=== PATIENT | male | born 1935 | race Caucasian/White ===

== ENCOUNTER 2025-06-09 08:11 | Emergency (ER) | payer MEDICARE, SELFPAY ==
--- NOTE | 2025-06-09 08:14 | ED_ITS ---
HPI - Eye Problem General Stated complaint: Fall, Left Eye Injury Source: patient and RN notes reviewed Mode of arrival: ambulatory Limitations: no limitations Review of Systems Review of Systems: CONSTITUTIONAL: Denies malaise, chills, sweats, or fever. EYES: Denies visual changes. Reports redness, irritation, discharge. ENT: Denies rhinorrhea, congestion, sinus pain, otalgia or sore throat. SKIN: Denies rash or itching. NEUROLOGIC: Denies numbness, weakness, or headache. PSYCHIATRIC: Denies anxiety or depression. All systems reviewed & are unremarkable except as noted in HPI and below PMFSH Comments At time of signature, agree with nursing past medical, surgical, social and family history. There is no relevant family history pertinent to the presenting complaint Exam Narrative: GENERAL: Well-appearing, well-nourished, and in no acute distress. HEAD: Normocephalic, atraumatic. EYES: PERRLA, sclera clear, and EOMI. No nystagmus. Bilateral conjunctivae injected. Upper and lower eyelid unremarkable, no periorbital edema noted ENT: Nares clear, turbinates pink, no rhinorrhea or epistaxis. Mucous membranes moist. TM pearly little with sharp light reflex bilaterally; no tragal tenderness. NECK: Supple. CHEST: No respiratory distress. Speaks in full sentences. HEART: Regular rate and rhythm. SKIN: Warm, dry, no visible rash. NEURO: Alert and oriented x3. PSYCH: Normal mood and affect Course Course Emergency Course: Patient is aware of diagnosis, understands and agrees to treatment plan. Ant icipatory guidance given. Patient agrees to follow-up as directed and is aware of reasons to seek care at the emergency department. Portions of this record may have been created with voice recognition software Level of Care: Express Care Visit Vital Signs Vital signs: Reviewed. MDM - Eye Problem MDM Narrative Medical decision making narrative: Consideration of the following conditions may be warranted for the presenting problem, they are not final diagnoses: Bacterial conjunctivitis, allergic conjunctivitis, viral conjunctivitis, foreign body, blepharitis, chalazion, hordeolum, corneal abrasion, preseptal cellulitis, orbital cellulitis. No evidence of proptosis, ophthalmoplegia, vision loss, pain with eye movement. Exam findings show no acute concerns or changes; patient is non-toxic appearing and is in no distress. Patient is appropriate for outpatient treatment and follow-up. Critical Care Time Critical Care Time Critical Care Time: No Discharge Plan Discharge Patient Language: [place] Follow-up/Referrals: Dewey,MD Eddie [Primary Care Provider] -
[2025-06-09 08:21] VITALS: BP 138/70; PULSE 88; RESP 16; TEMP 36.6; O2SAT 97
--- OUTSIDE RECORDS SUMMARY | 2025-06-09 08:21 | XMS_ITS ---
Author Organization [facility] Address [address] [place] [address] Care Team Providers Care Boilermaker Loftsman Name Role Phone Ky Wilson RN, Daniel Patrick MD Primary Care Provider [phone] Active Problems Problem Noted Date Diagnosed Date Hypotension 03/09/2025 Assessment & Plan (03/09/2025 7:47 AM CDT): Encounter for hepatitis C sc reening test for low risk patient 03/09/2025 Assessment & Plan (03/09/2025 7:47 AM CDT): Orders: Hepatitis C antibody Blood; Future Screening for diabetes mellitus 03/09/2025 Assessment & Plan (03/09/2025 7:47 AM CDT): Orders: Comprehensive metabolic panel; Future Screening, anemia, deficiency, iron 03/09/2025 Assessment & Plan (03/09/2025 7:47 AM CDT): Orders: CBC with auto differential; Future Screening for thyroid disorder 03/09/2025 Assessment & Plan (03/09/2025 7:47 AM CDT): Orders: TSH; Future Screening PSA (prostate specific antigen) 2024 Assessment & Plan (03/09/2025 7:47 AM CDT): Orders: PSA screen; Future Need for hepatitis B screening test 03/09/2025 Assessment & Plan (03/09/2025 7:47 AM CDT): Orders: Hepatitis B Surface Antigen Blood; Future Hepatitis B surface antibody (immune status) Blood; Future Hepatitis B core antibody, total Blood; Future 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, psychotic disturbance, mood disturbance, or anxiety 07/08/2024 Assessment & Plan (07/09/2024 12:43 PM CDT): Stable, continues to have progression; has some difficulty with taking medications on time; poor short-term memory, though continues to maintain long-term memory Patient currently driving short distances, but would encourage limiting driving in case patient were to get lost or redirected Patient would benefit from living in assisted living as is having difficulty continuing to care for patient, especially as she is in rehab Patient previously on medications, but did not tolerate; will continue to monitor Unsteady gait when walking 12/04/2022 Assessment & Plan (12/04/2022 2:15 PM MANAGER CULTURE): -not at goal -patient reports unsteady gait when walking. -offered PT, but patient declines at this time -recommended making slow position changes BMI 26.0-26.9,adult 12/04/2022 Assessment & Plan (12/04/2022 2:14 PM MANAGER CULTURE): HPI: Condition is stable goal BMI <30 A&P: Healthy, high-protein, lower carbohydrate, lower fat lifestyle Dysphagia 11/21/2022 Assessment & Plan (07/04/2023 3:00 PM CDT): Continues to have some episodes of dysphagia; choking in difficulty swallowing Encouraged continued education modifications per speech therapy Assessment & Plan (11/21/2022 12:03 PM MANAGER CULTURE): Modified barium swallow Consider speech therapy referral based on findings Syncope 06/29/2022 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 Lomeli, following. Mixed hyperlipidemia 05/16/2022 Assessment & Plan (03/09/2025 7:47 AM CDT): Orders: Lipid panel; Future Assessment & Plan (07/09/2024 12:42 PM CDT): Stable, well controlled, lipids and optimal range; continue to encourage low-fat high-fiber diet Assessment & Plan (01/03/2024 4:40 PM MANAGER CULTURE): Stable, well controlled; lipids and optimal range Will continue to monitor; encourage low-fat high-fiber diet Acquired deafness of right ear 06/27/2021 Anticoagulation goal of INR 2 to 3 05/16/2020 Assessment & Plan (06/12/2022 2:59 PM CDT): Last at goal - check today , can space out to every 2 weeks if remains at goal Assessment & Plan (05/16/2022 10:29 AM CDT): Continue current dose of warfarin, restart INR monitoring schedule INR has been within goal and slightly on high end but within goal and will continue current Schedule - can be checked every 2 to 4 weeks at this time Bilateral carotid artery stenosis 11/12/2019 History of Agarwal's esophagus 02/17/2019 Overview (02/17/2019): Added automatically from request for surgery [id number] History of colon polyps 02/17/2019 Overview (02/17/2019): Added automatically from request for surgery [id number] 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 Centrilobular emphysema 12/13/2017 Assessment & Plan (03/09/2025 7:47 AM CDT): Assessment & Plan (07/09/2024 12:43 PM CDT): Stable, well controlled, breathing well; gets dyspneic with walking or climbing stairs; no current medications Assessment & Plan (01/03/2024 4:40 PM MANAGER CULTURE): Stable, generally well controlled; patient reports some dyspnea; mostly associated with talking for long duration due to need to force out air through vocal cords Will continue to monitor, no need for inhaled medications at this time Assessment & Plan (07/04/2023 3:01 PM CDT): Continues to have issues with breathing, does not use any current inhalers Will continue to monitor, would recommend restarting inhalers as needed Assessment & Plan (06/12/2022 2:53 PM CDT): Continue current regimen - Not well controlled but dont think he is actually using his inhalers. States that the issue is only due to his phglem Assessment & Plan (05/16/2022 10:48 AM CDT): Continue current regimen - ellipta, albuterol. Well controlled Assessment & Plan (10/06/2019 8:55 AM MANAGER CULTURE): Replace home on oral with formulary Symbicort while inpatient. Continue albuterol p.r.n. Chronic GERD 08/20/2017 Assessment & Plan (03/09/2025 7:47 AM CDT): Assessment & Plan (01/03/2024 4:40 PM MANAGER CULTURE): Well controlled, no dysphagia difficulty with eating; no current antacids; continue to monitor Assessment & Plan (07/04/2023 3:00 PM CDT): Continues to have some symptoms, patient is not on any current medications Will continue to monitor, adjust medications as needed Assessment & Plan (10/06/2019 8:54 AM MANAGER CULTURE): Continue PPI therapy. Mixed conductive and sensori neural hearing loss of both ears 07/18/2017 Assessment & Plan (05/16/2022 10:47 AM CDT): Pt is hard of hearing, should follow up with audiology as warranted Lumbar stenosis 06/27/2017 Assessment & Plan (06/27/2017 4:47 PM CDT): consulted today in office to determine any other treatment options for chronic lumbago. 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 Does complain of some phglem in the throat Assessment & Plan (10/06/2019 8:55 AM MANAGER CULTURE): Historical only, status post resection. Dysphonia 09/28/2015 Chronic a-fib 04/17/2014 Overview (03/08/2017): ATRIAL FIBRILLATION Assessment & Plan (03/09/2025 7:47 AM CDT): Assessment & Plan (07/09/2024 12:43 PM CDT): Stable, well control, rate controlled; patient not on any current rate- controlling medication Currently on Eliquis 5 mg b.I.d.; however some difficulty in taking twice daily medication, may benefit from switching to once daily DOAC Assessment & Plan (01/03/2024 4:40 PM MANAGER CULTURE): Stable, rate controlled; irregular rhythm No major side effects associated with Eliquis No major palpitations Continue Eliquis 5 mg b.i.d. Assessment & Plan (07/04/2023 3:01 PM CDT): Stable, rate controlled; continue Eliquis 5 mg b.i.d. Assessment & Plan (06/12/2022 2:43 PM CDT): Continue home warfarin. Rate is self controlled without beta-eva or CB therapy. Continue telemetry monitoring. Assessment & Plan (05/16/2022 10:47 AM CDT): Continue home warfarin. Rate is self controlled without beta-eva or CB therapy. Continue telemetry monitoring. Assessment & Plan (10/06/2019 8:53 AM MANAGER CULTURE): Continue home warfarin. Rate is self controlled without beta-eva or CB therapy. Continue telemetry monitoring. Assessment & Plan (07/04/2017 1:26 PM CDT): Stable in office today. Cont coumadin therapy for anticoagulation and metoprolol for rate control Assessment & Plan (06/27/2017 4:45 PM CDT): Rate is controlled. Continue with his Coumadin at 2 mg dosing as a that does not seem to be the problem causing his shortness of breath considering EKG in office today. Considering risk factors, we also checked an O2 sat office today which was 99% and lungs sounded good so there is no concern of PE development at this time Current Treatment and Therapy Plans No current plan information found. Past Treatment and Therapy Plans No past plan information found. Lifetime Dose Tracking * Chemical Lifetime Dose Automatic Entry Manual Entr y Fluoro Time 1.58 minutes 1.58 minutes 0 minutes Air kerma at the reference point (Ka,r) 6.3 mGy 6 .3 mGy 0 mGy Resolved Problems Problem Noted Date Diagnosed Date Resolved Date Cardiac rhythm disorder or d isturbance or change 08/15/2020 05/26/2021 Bilateral carotid artery stenosis 05/17/2020 05/17/2020 Syncope 10/06/2019 11/01/2020 Assessment & Plan (10/06/2019 8:54 AM MANAGER CULTURE): Most likely 2/2 intermittent hypotension given 1 year history of orthostatic symptoms. RVR and bradycardia less likely with lack of palpitations, but can't be ruled out with history of Afib. Unfortunately neither patient nor his thought to press recordable loop recorder after his syncopal event occurred so there are no recordings available to interrogate. Had normal stress test 09/15/19 and TTE with EF 65-70%. Cardiology consulted, may benefit from midodrine on discharge. SOB (shortness of breath) 06/27/2017 Assessment & Plan (07/04/2017 1:41 PM CDT): Discussed use of ProAir p.r.n. for shortness of breath and possibly ordering of pulmonary function tests to see if there is possibly some asthma there. Patient denied wanting test at this time he will be she is ProAir as needed We discussed switching over ipratropium he is afraid of tachycardia which might present with ProAir, but again he wants to wait and try the ProAir 1st. He declined wanting to get the 2D echocardiogram that he believes shortness of breath is not cardiac related concerns cardiac history, I discussed that it would still be advised by me. He was advised to let us know if he would like to move forward with scheduling the test if desired Assessment & Plan (06/27/2017 4:47 PM CDT): 2D echocardiogram ordered today in office along with a chest x-ray to look for other etiologies causing his shortness of breath. EKG appeared normal for patient in office today. I prescribed ProAir because of the wheezing for him to use as needed. I advised him today keep a tab on when he is using it if it is effective, and next visit we can always do spirometry study as well He was advised to follow up in our office in a week, and certainly if symptoms worsen in between here and then to go to ER or make an appointment sooner depending on urgency Chronic fatigue 06/27/2017 05/16/2020 Assessment & Plan (06/27/2017 4:46 PM CDT): I believe the fatigue to be secondary to the gabapentin. I advised patient we can consult another pain management doctor as they are requesting to see a different 1 he is currently seeing at [facility]. Dr. bryan with consult to for lumbar stenosis. Lyrica would be another option, if he is unable to get with Dr. Hill we can consider switching over to Lyrica from gabapentin if this is contributing to his fatigue. Certainly we can also check into a any anemia or thyroid deficiencies by CBC and a TSH follow-up as well Pain in shoulder 09/27/2016 01/27/2019 Spinal stenosis 03/23/2016 01/27/2019 Chronic pain 03/23/2016 05/16/2020 Malignant neoplasm of larynx 08/30/2014 09/29/2018 Lesion of vocal cord 08/11/2014 019 Osteoarthritis of knee 05/12/201205/16
--- OUTSIDE RECORDS SUMMARY | 2025-06-09 08:21 | XMS_ITS | Encounter Summary ---
Author Organization [facility] Address [address] [place] [address] Phone Care Team Providers Care Buy Boat Operator Name Role Phone Ky Wilson RN Unavailable Unavailabl Terrence Knight MD Primary Care Provider Candelaria Nguyen LPN Unavailable [phone] Michaela Benavides MA Unavailable [phone] Eddie Palomo MD Primary Care Provider [phone] Encounter Details Date Type Department Care Team (Late st Contact Info) Description 01/07/2018 Orders Only [facility] ProviderJadyn MD [facility] [place] [address] Social History Tobacco Use Types Packs/Day Years Used Date Smoking Tobacco: Former Smokeless Tobacco: Never Alcohol Use Standard Drinks/Week Comments Yes 0 (1 standard drink = 0.6 oz pur e alcohol) Sex and Gender Information Value Date Recorded Sex Assigned at Not on file 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 Author [facility] No Ky Wilson, ANDREEA Note: Patient will establish a comfort-function goal and identify the pain level that will allow the patient to perform desired activities and achieve an acceptable quality of life. -[facility] Ky Wilson, RN Note: Patient will report that the pain management medication regimen achieves comfort-function goal without the occurrence of adverse effects. documented as of this encounter Procedures Procedure Name Priority Date/Time Associated Diagnosis Comments DISCHARGE LABORATORY CUMULATIVE REPORT 01/07/2018 12:00 AM MARINE ENGINEERING PROFESSOR documented in this encounter Results * DISCHARGE LABORATORY CUMULATIVE REPORT (01/07/2018 12:00 AM MARINE ENGINEERING PROFESSOR) Narrative 01/07/2018 12:00 AM MARINE ENGINEERING PROFESSOR Ordered by an unspecified provider. Historical Provider LAB BLOOD ORDERABLES Mary Carmen l Result documented in this encounter Visit Diagnoses Not on filedocumented in this encounter Additional Health Concerns Infection Onset Date Last Indicated Resolved Time COVID: Suspected 06/29/2022 06/29/2022 06/29/2022 9:59 AM CDT documented as of this encounter Care Teams Buy Boat Operator Relationship Specialty Start Date End Date Terrence Jones MD PCP - General Family Medicine 05/16/22 06/11/23 Eddie Palomo MD [address] [place] [address] PCP - General Family Medicine 06/12/23 Ky Wilson, RN Registered Nurse 12/19/17 Candelaria Nguyen LPN [address] [place] [address] ACO Care Imager 07/05/22 07/15/22 Michaela Benavides MA [address] [place] [address] ACO Care Imager 07/17/22 08/13/22 documented as of this encounter
--- OUTSIDE RECORDS SUMMARY | 2025-06-09 08:21 | XMS_ITS | Clinical Summary ---
Author Organization [facility] Address [address] [place] [address] Care Team Providers Care Tipping Machine Operator Name Role Phone Ky Wilson RN, Daniel Patrick MD Primary Care Provider [phone] Allergies No known active allergies Medications apixaban (Eliquis) 5 mg tablet Take 1 tablet (5 mg total) by mouth 2 (two) times a day 180 tablet 3 4 Active donepeziL (ARICEPT) 5 mg tablet Take 1 tablet (5 mg total) by mouth nightly 90 tablet 4 Active escitalopram (LEXAPRO) 5 mg tablet Take 1 tablet (5 mg total) by mouth daily 90 tablet 3 4 025 Active midodrine (PROAMATINE) 10 mg tablet Take 1 tablet (10 mg total) by mouth 3 (three) times a day 90 tablet 5 025 Active midodrine (PROAMATINE) 5 mg tabletIndicatio ns:Symptomatic Orthostatic Hypotension Take 1 tablet (5 mg total) by mouth 3 (three) times a day 270 tablet 3 5 025 Discontinued Active Problems Problem Noted Date Diagnosed Date [...] 12/04/2022 Assessment & Plan (12/04/2022 2:15 PM VACATION PLANNER): -not at goal -patient reports unsteady gait when walking. -offered PT, but patient declines at this time -recommended making slow position changes BMI 26.0-26.9,adult 12/04/2022 Assessment & Plan (12/04/2022 2:14 PM VACATION PLANNER): HPI: Condition is stable goal BMI <30 A&P: Healthy, high-protein, lower carbohydrate, lower fat lifestyle Dysphagia 11/21/2022 Assessment & Plan (07/04/2023 3:00 PM CDT): Continues to have some episodes of dysphagia; choking in difficulty swallowing Encouraged continued education modifications per speech therapy Assessment & Plan (11/21/2022 12:03 PM VACATION PLANNER): Modified barium swallow Consider speech therapy referral [...] diet Assessment & Plan (01/03/2024 4:40 PM VACATION PLANNER): Stable, well controlled; lipids and optimal range [...] (02/17/2019): Added automatically from request for surgery [id number] History of colon polyps 02/17/2019 Overview (02/17/2019): Added automatically from request for surgery [id number] 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 Centrilobular emphysema 12/13/2017 Assessment & Plan (03/09/2025 7:47 AM CDT): Assessment & Plan (07/09/2024 12:43 PM CDT): Stable, well controlled, breathing well; gets dyspneic with walking or climbing stairs; no current medications Assessment & Plan (01/03/2024 4:40 PM VACATION PLANNER): Stable, generally well controlled; patient reports some [...] controlled Assessment & Plan (10/06/2019 8:55 AM VACATION PLANNER): Replace home on oral with formulary Symbicort while inpatient. Continue albuterol p.r.n. Chronic GERD 08/20/2017 Assessment & Plan (03/09/2025 7:47 AM CDT): Assessment & Plan (01/03/2024 4:40 PM VACATION PLANNER): Well controlled, no dysphagia difficulty with eating; no current antacids; continue to monitor Assessment & Plan (07/04/2023 3:00 PM CDT): Continues to have some symptoms, patient is not on any current medications Will continue to monitor, adjust medications as needed Assessment & Plan (10/06/2019 8:54 AM VACATION PLANNER): Continue PPI therapy. 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 Dysphonia 09/28/2015 [...] DOAC Assessment & Plan (01/03/2024 4:40 PM VACATION PLANNER): Stable, rate controlled; irregular rhythm No major [...] monitoring. Assessment & Plan (10/06/2019 8:53 AM VACATION PLANNER): Continue home warfarin. Rate is self controlled [...] concern of PE development at this time Resolved Problems Problem Noted Date Diagnosed Date Resolved Date Cardiac rhythm disorder or d isturbance or change 08/15/2020 05/26/2021 Bilateral carotid artery stenosis 05/17/2020 05/17/2020 Syncope 10/06/2019 11/01/2020 Assessment & Plan (10/06/2019 8:54 AM VACATION PLANNER): Most likely 2/2 intermittent hypotension given 1 [...] different 1 he is currently seeing at [place]. Dr. bryan with consult to for lumbar [...] cord 08/11/2014 019 Osteoarthritis of knee 05/12/201205/16 Encounters Date Type Department Care Team Description 06/03/2025 Telephone [facility] [address] [place] [address] Eddie Palomo MD 06/02/2025 1:30 PM CDT Office Visit [place] [facility] at [address] [place] [address] Sarah Brock NP Chronic a-fib (HCC) (Primary Dx); Mixed hyperlipidemia 05/28/2025 Telephone [facility] [address] [address] Eddie Palomo MD 05/25/2025 Telephone [facility] [address] [address] Eddie Palomo MD Medical Question/Miscellaneous 05/24/2025 Telephone [facility] [address] [address] Eddie Palomo MD 05/20/2025 Telephone [facility] [address] [address] Eddie Palomo MD 05/20/2025 Telephone [facility] [address] [address] Eddie Palomo MD 05/17/2025 Telephone [facility] [address] [address] Eddie Palomo MD 05/17/2025 Telephone [facility] [address] [address] Eddie Palomo MD 05/10/2025 Telephone [facility] [address] [address] Eddie Palomo MD 04/28/2025 Telephone [facility] [address] [address] Eddie Palomo MD 03/10/2025 Results Follow-Up [facility] at [address] [address] Radha Bunch NP Hepatitis B core antibody, total Blood, Hepatitis B surface antibody (immune status) Blood, Hepatitis B Surface Antigen Blood, Additional followed-up results: 8 from Last 3 Months Immunizations Immunization Administration Dates Next Due Influenza, Quadrivalent, Hig h Dose, Preservative Free, Intrr 12/04/2022,09/08/2021 Influenza, Split 09/04/2011,09/05/2010 Influenza, Trivalent, Adjuva nted, Intramuscular 09/15/2018 Influenza, Trivalent, High D ose, Split, Preservative Free, Intramuscular 08/27/2019,08/20/2017,11/12/2016,11/10,10/20/2014,09/28/2013 Influenza, Trivalent, IM (MDV) 08/02/2012,2008 Influenza, Unspecified 03/01/2025(Deferr ed: Patient Refused),09/07/2024(Deferred: Patient Refused),09/19/2023(Deferred: Patient Refused),09/19/2022(Deferred: Patient Refused),10/17/2020(Deferred: Patient Refused - pt was an e-visit today),09/01/2020(Deferred: Patient Refused),07/27/2019(Deferred: Patient Refused),09/15/2018 Reapplix SARS-CoV-2 Monovalent Vaccination (12+ Yrs) ALAN-READY TO USE 07/04/2022 Pneumococcal Conjugate PCV 13 11/10/2015 Pneumococcal Polysaccharide PPV23 10/09/2012, Td, adsorbed 10/18/2009 ZOSTER LIVE 10/20/2013,12/02/2012 Surgical History Surgery Date Site/Laterality Comments CHOLECYSTECTOMY lap cholecystectomy CARPAL TUNNEL RELEASE Carpal tunnel release KNEE ARTHROSCOPY Arthroscopy knee OTHER SURGICAL HISTORY 1999 detached retina surg/ rt IR G TUBE PLACEMENT PERCUTANEOUS 09/13/2014 N/A FLUORO GUIDED INJECTION SHOULDER RIGHT 11/17/2018 Right UPPER GASTROINTESTINAL ENDOSCOPY 03/03/2024 Medical History Medical History Date Comments Hx Other Medical Agarwal's Esoph thierry Hx Other Medical Osteoarthritis of the spine Spinal stenosis Spinal stenosis Atrial fibrillation (HCC) Atrial fibrillation Hx Other Medical Malignant neopl asm of Larynx Agarwal esophagus COPD (chronic obstructive pulmonary disease) (HC C) Family History Medical History Relation Name Comments Cancer Mother thyroid Throat cancer Mother Cancer -throat ; Cause of : Cancer -throat Other Other 2 No family histo ry of Diabetes mellitus; Other Other 3 No family histo ry of Cancer, colon; Relation Name Status Comments Mother (Age 9) Other 1 Alive Other 2 Other 3 Social History Tobacco Use Types Packs/Day Years Used Date Smoking Tobacco: Former Smokeless Tobacco: Never Tobacco Cessation:Counseling Given: Not Answered Alcohol Use Standard Drinks/Week Comments Not Currently 0 (1 standard drink = 0.6 oz pur e alcohol) AUDIT-C Answer Date Recorded Q1: How often do you have a drink containing alc ohol? Never 06/12/2023 Average Number of Drinks Not on file 023 Frequency of Binge Drinking Not on file 06/01 PHQ-2 Answer Date Recorded PHQ-2 Total Score (If total score is 3 or more points, staff should administer the PHQ-9) 0 07/21/2024 Personal Safety Answer Date Recorded Have you ever been in or are you currently in a harmful physical or emotional relationship or is someone making you feel afraid or unsafe? Denies 03/03/2024 Sex and Gender Information Value Date Recorded Sex Assigned at Not on file Legal Sex Male 11:53 PM VACATION PLANNER Gender Identity Not on file Sexual Orientation Not on file Obstetrics History Last Filed Vital Signs Vital Sign Reading Time Taken Comments Blood Pressure 82/50 06/02/2025 1:41 PM CDT Pulse 85 06/02/2025 1:41 PM CDT Temperature 36.5 C (97.7 F) 03/08/2025 10:40 AM CDT Respiratory Rate 18 06/02/2025 1:41 PM CDT Oxygen Saturation 93% 03/08/2025 10:40 AM CDT Inhaled Oxygen Concentration - - Weight 77.1 kg (170 lb) 06/02/2025 1:41 PM CDT Height 170.2 cm (5' 7) 06/02/2025 1:41 PM CDT Body Mass Index 26.63 06/02/2025 1:41 PM CDT Plan of Treatment Health Maintenance Due Date Last Done Comments Abdominal Aortic Aneurysm (AAA) Screen 2002 DTaP/Tdap/Td Vaccine (1 - Tdap) 10/19/2009 10/18/2009 Covid-19 Vaccine ( season) 2024 07/04/2022, 10/10/2021, 02/07/2021 Fall Risk Assessment 07/08/2025 07/08/2024, 12/18/2023, 06/12/2023, Additional history exists Well Visit 65+ 07/08/2025 07/08/2024, 01/2023, 05/25/2021, Additional history exists Depression Screening 07/21/2025 07/21/2024, 07/08/2024, 12/18/2023, Additional history exists Influenza Vaccine (#1) 2025 , 09/08/2021, 08/27/2019, Additional history exists Zoster Vaccine (2 of 3) 03/01/2026 10/20/2013, 12/02 Postponed from 12/15/2013 (Patient declined, but will receive in the future) Prostate Cancer Screening-PSA 03/08/2026 03/08/2025, 11/29/2023, 12/25/2022, Additional history exists Pneumococcal vaccine 65+ Completed 015, 10/09/2012, 10/31/2007 Colon Cancer Screening-CT Colonography Discontinued 03/03/2019, 02/05/2017, 02/05/2017, Additional history exists Colon Cancer Screening-Colonoscopy Discontinued 03/03/2019, 02/05/2017, 02/05/2017, Additional history exists Colon Cancer Screening-DNA Stool Discontinued 03/03/2019, 02/05/2017, 02/05/2017, Additional history exists Colon Cancer Screening-FIT Discontinued 03/03, 02/05/2017, 02/05/2017, Additional history exists Colon Cancer Screening-Sigmoidoscopy Discontinued 03/03/2019, 02/05/2017, 02/05/2017, Additional history exists Hepatitis B Screening Completed 03/08/2025 Goals Goal Patient Goal Type Associated Problems Recent Progress Patient-Stated? Author -[facility] Ky Norwood, RN Note: Patient will establish a comfort-function goal and identify the pain level that will allow the patient to perform desired activities and achieve an acceptable quality of life. [facility] Norwood[facility] Note: Patient will report that the pain management medication regimen achieves comfort-function goal without the occurrence of adverse effects. Procedures Procedure Name Priority Date/Time Associated Diagnosis Comments PSA SCREEN Routine 03/08/2025 11:31 AM CDT Screening for malignant neoplasm of prostate COLONOSCOPY 03/03/2019 10:02 AM CDT from Last 3 Months or Most Recently Relevant to Health Maintenance Results * PSA screen (03/08/2025 11:31 AM CDT) PSA-Total 1.05 <=6.20 ng/mL Comment: Interpretive Data AGE SEX REFERENCE INTERVAL 0 minutes-150 years Female None 0 minutes-49 years Male None 50-59 years Male 0-3.90 60-69 years Male 0-5.40 70-79 years Male 0-6.20 80-150 years Male 0-6.20 The Adal PSA Total assay procedure was used. Results from different manufacturers or methods may not be comparable. Serial testing should be performed using the same method. Current interpretive data last revised 22. Blood 03/08/2025 11:3 1 AM CDT 03/08/2025 10:00 PM CDT us Radha Bunch NP LAB BLOOD ORDERABLES Final Re sult [facility] [id number] [facility] Department [place] [address] * COLONOSCOPY (03/03/2019 10:02 AM CDT) Anatomical Region Laterality Modality Other Narrative Procedure Note Fawad He MD - 03/03/2019 10:02 AM CDT [facility] Patient Name: Aric Orozco Procedure Date: 03/03/2019 10:02 AM Date of : 1935 Admit Type: Outpatient Age: 83 Gender: Male Attending MD: Fawad He M.D. Room: [facility] ENDOSCOPY ROOM 2 Note Status: Finalized Procedure: Colonoscopy Indications: High risk colon cancer surveillance: Personalhistory of colonic polyps Referring MD: Alden Israel M.D. Providers: Fawad He M.D. Impression: - Hemorrhoids found on perianal exam. - Diverticulosis in the sigmoid colon, in the descending colon, at the splenic flexure, in the transverse colon and at the hepatic flexure. - The examination was otherwise normal. - No specimens collected. Recommendation: - Discharge patient to home. - Resume previous diet. - Continue present medications. - Repeat colonoscopy in 5 years for surveillance. - Return to primary care physician as previously scheduled. Medicines: Propofol per Anesthesia Complications: No immediate complications. Estimated Blood Loss: Estimated blood loss: none. Procedure: The benefits, risks and alternatives of theprocedure and sedation were discussed and informed consent was obtained. All questions were answered. Please referto the signed informed consent document in the medical record. The scope was passed under direct vision.The Colonoscope [id number] was introducedthrough the anus and advanced to the the cecum, identifiedby appendiceal orifice and ileocecal valve. The colonoscopy was performed without difficulty. The patient tolerated the procedure well. The quality of the bowel preparation was adequate to identifypolyps. Findings: Hemorrhoids were found on perianal exam. Multiple small and large-mouthed diverticula were found in thesigmoid colon, descending colon, splenic flexure, transverse colon andhepatic flexure. The exam was otherwise without abnormality. Electronically signed by Fawad He M.D. Fawad He M.D. 03/03/2019 10:38:52 AM Number of Addenda: 0 Note Initiated On: 03/03/2019 10:02 AM Procedure Code(s): --- Professional --- G0105, Colorectal cancer screening; colonoscopy on individual at high risk Diagnosis Code(s): --- Professional --- K57.30, Diverticulosis of large intestine without perforation orabscess without bleeding K64.9, Unspecified hemorrhoids Z86.010, Personal history of colonic polyps CPT copyright 2017 [employer]. All rights reserved. The codes documented in this report are preliminary and upon grinder chipper reviewmay be revised to meet current compliance requirements. Recognized by the [employer] for promoting quality in endoscopy Fawad He MD ENDOSCOPY PROCEDURES Final Re sult from Last 3 Months or Most Recently Relevant to Health Maintenance Insurance MEDICARE [facility] MEDICARE [facility] MEDICARE SUPPLEMENT Advance Directives For more information, please contact: [phone] Documents on File Type Date Recorded Patient Chief Jailer Expl anation ADVANCE DIRECTIVE 04/30/2025 3:45 PM POLST - Phys Order for PT Preferences Power of Porcelain Turner 04/30/2025 9:55 AM ADVANCE DIRECTIVE 08/14/2024 12:50 PM POLS T - Phys Order for PT Preferences * Full Code (Latest Code Status on File) Date Activated Date Inactivated Comments 03/03/2024 9:40 AM 03/03/2024 4:10 PM * Full Code Date Activated Date Inactivated Comments 03/03/2024 9:40 AM 03/03/2024 9:40 AM * Full Code Date Activated Date Inactivated Comments 06/29/2022 3:33 AM 07/04/2022 8:24 PM * Full Code Date Activated Date Inactivated Comments 10/06/2019 1:34 AM 10/06/2019 8:30 PM * Full Code Date Activated Date Inactivated Comments 03/03/2019 8:49 AM 03/03/2019 3:50 PM Care Teams Tipping Machine Operator Relationship Specialty Start Date End Date Eddie Palomo MD [address] [place] [address] PCP - General Family Medicine 06/12/23 Ky Wilson, RN Registered Nurse 12/19/17
--- OUTSIDE RECORDS SUMMARY | 2025-06-09 08:21 | XMS_ITS | Encounter Summary ---
Author Organization [facility] Healthcare Address [address] [place] [address] Care Team Providers Care Director Gift Name Role Phone Ky Wilson RN Unavailable Unavailabl Terrence Knight MD Primary Care Provider [phone] Candelaria Nguyen LPN Unavailable [phone] Michaela Benavides MA Unavailable Eddie Palomo MD Primary Care Provider [phone] Encounter Details Date Type Department Care Team (Late st Contact Info) Description 06/25/2022 Telephone [facility] [address] [place] [address] Love Diane, RT Social History Tobacco Use Types Packs/Day Years Used Date Smoking Tobacco: Former Smokeless Tobacco: Never Alcohol Use Standard Drinks/Week Comments Not Currently 0 (1 standard drink = 0.6 oz pur e alcohol) PHQ-2 Answer Date Recorded PHQ-2 Total Score (If total score is 3 or more points, staff should administer the PHQ-9) 0 06/12/2022 Sex and Gender Information Value Date Recorded Sex Assigned at Not on file Legal Sex Male 11:53 PM IMMUNOLOGIST Gender Identity Not on file Sexual Orientation Not on file documented as of this encounter Plan of Treatment Not on file documented as of this encounter Goals Goal Patient Goal Type Associated Problems Recent Progress Patient-Stated? Author [facility] No Ky Wilson, RN Note: Patient will establish a comfort-function goal and identify the pain level that will allow the patient to perform desired activities and achieve an acceptable quality of life. -[facility] No Ky Wilson, RN Note: Patient will report that the pain management medication regimen achieves comfort-function goal without the occurrence of adverse effects. documented as of this encounter Visit Diagnoses Not on filedocumented in this encounter Additional Health Concerns Infection Onset Date Last Indicated Resolved Time COVID: Suspected 06/29/2022 06/29/2022 06/29/2022 9:59 AM CDT documented as of this encounter Care Teams Director Gift Relationship Specialty Start Date End Date Terrence Jones MD PCP - General Family Medicine 05/16/22 06/11/23 Eddie Palomo MD [address] [place] [address] PCP - General Family Medicine 06/12/23 Ky Wilson, RN Registered Nurse 12/19/17 Candelaria Nguyen LPN [address] [place] [address] [address] [place] [address] ACO Care Rod Placer 07/05/22 07/15/22 Michaela Benavides MA [address] [place] [address] [address] [place] [address] ACO Care Rod Placer 07/17/22 08/13/22 documented as of this encounter
--- OUTSIDE RECORDS SUMMARY | 2025-06-09 08:21 | XMS_ITS | Encounter Summary ---
Author Organization [facility] Healthcare Address [address] [place] [address] Care Team Providers Care Art Supervisor Name Role Phone Ky Wilson RN Unavailable Unavailabl Terrence Knight MD Primary Care Provider [phone] Candelaria Nguyen LPN Unavailable [phone] Michaela Benavides MA Unavailable [phone] Eddie Palomo MD Primary Care Provider [phone] Encounter Details Date Type Department Care Team (Late st Contact Info) Description 11/09/2020 Telephone [facility] [address] [place] [address] Roxann Chisholm RDMS Social History Tobacco Use Types Packs/Day Years Used Date Smoking Tobacco: Former Smokeless Tobacco: Never Alcohol Use Standard Drinks/Week Comments Not Currently 0 (1 standard drink = 0.6 oz pur e alcohol) PHQ-2 Answer Date Recorded PHQ-2 Total Score (If total score is 3 or more points, staff should administer the PHQ-9) 0 11/01/2020 Sex and Gender Information Value Date Recorded Sex Assigned at Not on file Legal Sex Male 11:53 PM 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 -[facility] Ky Wilson, RN Note: Patient will report that the pain management medication regimen achieves comfort-function goal without the occurrence of adverse effects. documented as of this encounter Visit Diagnoses Not on filedocumented in this encounter Additional Health Concerns Infection Onset Date Last Indicated Resolved Time COVID: Suspected 06/29/2022 06/29/2022 06/29/2022 9:59 AM CDT documented as of this encounter Care Teams Art Supervisor Relationship Specialty Start Date End Date Terrence Jones MD PCP - General Family Medicine 05/16/22 06/11/23 Eddie Palomo MD [address] [place] [address] PCP - General Family Medicine 06/12/23 Ky Wilson, RN Registered Nurse 12/19/17 Candelaria Nguyen LPN [address] [place] [address] [address] [place] [address] ACO Care Kiln Car Repairer 07/05/22 07/15/22 Michaela Benavides MA [address] [place] [address] [address] [place] [address] ACO Care Kiln Car Repairer 07/17/22 08/13/22 documented as of this encounter
--- OUTSIDE RECORDS SUMMARY | 2025-06-09 08:21 | XMS_ITS | Encounter Summary ---
Author Organization [facility] Healthcare Address [address] [place] [address] Care Team Providers Care Ophthalmic Medical Assistant Name Role Phone Ky Wilson RN [facility] Eddie Nichole MD Primary Care Provider [phone] Reason for Visit * Reason Onset Date Comments Medical Question/Miscellaneous 05/25/2025 Encounter Details Date Type Department Care Team (Late st Contact Info) Description 05/25/2025 Telephone [facility] [address] [place] [address] Eddie Palomo MD [address] [place] [address] Medical Question/Miscellaneous Social History Tobacco Use Types Packs/Day Years [...] on file 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 * Telephone Encounter - Isis Andrade MA - 05/25/2025 9:54 AM CDT Any other recommendations you may have for the fractured ribs? Will scan in xray results once they are received. * Telephone Encounter - Catherine López - 05/25/2025 9:49 AM CDT Medical Question/Miscellaneous Caller???s Concern: Zuleika calling to let Dr. Palomo know that the results from the xray came back and patient does have so fracture of ribs. She will be faxing the results over to him today. She alsostated Dr. Palomo prescribed patient 1000mg tylenol and they wanted to know if there was anything else he want's them to do. Please advise Does message need to be routed? Yes-Action Needed documented in this encounter Plan of Treatment Not on file documented as of this encounter Goals Goal Patient Goal Type Associated Problems Recent Progress Patient-Stated? Author -[facility] Ky Norwood, RN Note: Patient will establish a comfort-function goal and identify the pain level that will allow the patient to perform desired activities and achieve an acceptable quality of life. -[facility] Ky Norwood, RN Note: Patient will report that the pain management medication regimen achieves comfort-function goal without the occurrence of adverse effects. documented as of this encounter Visit Diagnoses Not on filedocumented in this encounter Care Teams Ophthalmic Medical Assistant Relationship Specialty Start Date End Date Eddie Palomo [place] [address] PCP - General Family Medicine 06/12/23 Ky Wilson, RN Registered Nurse 12/19/17 documented as of this encounter
--- OUTSIDE RECORDS SUMMARY | 2025-06-09 08:21 | XMS_ITS | Referral Summary ---
Author Organization [facility] Address [address] [place] [address] Care Team Providers Care Rope Coiling Machine Operator Name Role Phone Ky Wilson RN, Daniel Patrick MD Primary Care Provider [phone] Encounters Date Type Department Care Team Description 06/03/2025 Telephone [facility] [address] [phone] Eddie Palomo MD 06/02/2025 1:30 PM CDT Office Visit [place] [facility] at [address] [place] [phone] Sarah Brock NP Chronic a-fib (HCC) (Primary Dx); Mixed hyperlipidemia 05/28/2025 Telephone [facility] [address] [phone] Eddie Palomo MD 05/25/2025 Telephone [facility] [address] [phone] Eddie Palomo MD Medical Question/Miscellaneous 05/24/2025 Telephone [facility] [address] [phone] Eddie Palomo MD 05/20/2025 Telephone [facility] [address] [phone] Eddie Palomo MD 05/20/2025 Telephone [facility] [address] [phone] Eddie Palomo MD 05/17/2025 Telephone [facility] [address] [phone] Eddie Palomo MD 05/17/2025 Telephone [facility] [address] [phone] Eddie Palomo MD 05/10/2025 Telephone [facility] [address] [phone] Eddie Palomo MD 04/28/2025 Telephone [facility] [address] [phone] Eddie Palomo MD 03/10/2025 Results Follow-Up [facility] at [address] [place] [phone] Radha Bunch NP Hepatitis B core antibody, total Blood, Hepatitis B surface antibody (immune status) Blood, Hepatitis B Surface Antigen Blood, Additional followed-up results: 8 from Last 3 Months Allergies No known active allergies Medications apixaban [...] 12/04/2022 Assessment & Plan (12/04/2022 2:15 PM NEONATAL DOCTOR): -not at goal -patient reports unsteady gait when walking. -offered PT, but patient declines at this time -recommended making slow position changes BMI 26.0-26.9,adult 12/04/2022 Assessment & Plan (12/04/2022 2:14 PM NEONATAL DOCTOR): HPI: Condition is stable goal BMI <30 A&P: Healthy, high-protein, lower carbohydrate, lower fat lifestyle Dysphagia 11/21/2022 Assessment & Plan (07/04/2023 3:00 PM CDT): Continues to have some episodes of dysphagia; choking in difficulty swallowing Encouraged continued education modifications per speech therapy Assessment & Plan (11/21/2022 12:03 PM NEONATAL DOCTOR): Modified barium swallow Consider speech therapy referral [...] diet Assessment & Plan (01/03/2024 4:40 PM NEONATAL DOCTOR): Stable, well controlled; lipids and optimal range [...] (02/17/2019): Added automatically from request for surgery [id number] History of colon polyps 02/17/2019 Overview (02/17/2019): Added automatically from request for surgery [id number] 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 Centrilobular emphysema 12/13/2017 Assessment & Plan (03/09/2025 7:47 AM CDT): Assessment & Plan (07/09/2024 12:43 PM CDT): Stable, well controlled, breathing well; gets dyspneic with walking or climbing stairs; no current medications Assessment & Plan (01/03/2024 4:40 PM NEONATAL DOCTOR): Stable, generally well controlled; patient reports some [...] controlled Assessment & Plan (10/06/2019 8:55 AM NEONATAL DOCTOR): Replace home on oral with formulary Symbicort while inpatient. Continue albuterol p.r.n. Chronic GERD 08/20/2017 Assessment & Plan (03/09/2025 7:47 AM CDT): Assessment & Plan (01/03/2024 4:40 PM NEONATAL DOCTOR): Well controlled, no dysphagia difficulty with eating; no current antacids; continue to monitor Assessment & Plan (07/04/2023 3:00 PM CDT): Continues to have some symptoms, patient is not on any current medications Will continue to monitor, adjust medications as needed Assessment & Plan (10/06/2019 8:54 AM NEONATAL DOCTOR): Continue PPI therapy. 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 Dysphonia 09/28/2015 [...] DOAC Assessment & Plan (01/03/2024 4:40 PM NEONATAL DOCTOR): Stable, rate controlled; irregular rhythm No major [...] monitoring. Assessment & Plan (10/06/2019 8:53 AM NEONATAL DOCTOR): Continue home warfarin. Rate is self controlled [...] 11/01/2020 Assessment & Plan (10/06/2019 8:54 AM NEONATAL DOCTOR): Most likely 2/2 intermittent hypotension given 1 [...] different 1 he is currently seeing at [facility]. Dr. bryan with consult to for lumbar [...] cord 08/11/2014 019 Osteoarthritis of knee 05/12/201205/16 Immunizations Immunization Administration Dates Next Due Influenza, Quadrivalent, Hig h Dose, Preservative Free, Intrr 12/04/2022,09/08/2021 Influenza, Split 09/04/2011,09/05/2010 Influenza, Trivalent, Adjuva nted, Intramuscular 09/15/2018 Influenza, Trivalent, High D ose, Split, Preservative Free, Intramuscular 08/27/2019,08/20/2017,11/12/2016,11/10,10/20/2014,09/28/2013 Influenza, Trivalent, IM (MDV) 08/02/2012,2008 Influenza, Unspecified 03/01/2025(Deferr ed: Patient Refused),09/07/2024(Deferred: Patient Refused),09/19/2023(Deferred: Patient Refused),09/19/2022(Deferred: Patient Refused),10/17/2020(Deferred: Patient Refused - pt was an e-visit today),09/01/2020(Deferred: Patient Refused),07/27/2019(Deferred: Patient Refused),09/15/2018 [employer] mobile marketing SARS-CoV-2 Monovalent Vaccination (12+ Yrs) ALAN-READY TO USE 07/04/2022 Pneumococcal Conjugate PCV 13 11/10/2015 Pneumococcal Polysaccharide PPV23 10/09/2012, Td, adsorbed 10/18/2009 ZOSTER LIVE 10/20/2013,12/02/2012 Social History Tobacco Use Types Packs/Day Years [...] on file Legal Sex Male 11:53 PM NEONATAL DOCTOR Gender Identity Not on file Sexual Orientation Not on file Last Filed Vital Signs Vital Sign Reading [...] 06/02/2025 1:41 PM CDT Plan of Treatment Not on file Goals Goal Patient Goal Type Associated Problems Recent Progress Patient-Stated? Author -Pain Behavioral [facility] Ky Norwood RN Note: Patient will establish a comfort-function goal and identify the pain level that will allow the patient to perform desired activities and achieve an acceptable quality of life. -Pain Behavioral [facility] Ky Norwood RN Note: Patient will report that the [...] 03/08/2025 10:00 PM CDT us Radha Bunch LOGISTICS ASSOCIATE LAB BLOOD ORDERABLES Final Re sult [facility] [address] [facility] [place] [address] * COLONOSCOPY (03/03/2019 10:02 AM CDT) Anatomical Region Laterality Modality Other Narrative Procedure Note Fawad He MD - 03/03/2019 10:02 AM CDT Digestive [facility] Patient Name: Aric Orozco Procedure Date: 03/03/2019 10:02 AM Date of : 1935 Admit Type: Outpatient Age: 83 Gender: Male Attending MD: Fawad He M.D. Room: [facility] ENDOSCOPY ROOM 2 Note Status: Finalized Procedure: [...] scope was passed under direct vision.The Colonoscope [id number] was introducedthrough the anus and advanced to [...] history of colonic polyps CPT copyright 2017 [employer] [place] [employer]. All rights reserved. The codes documented in this report are preliminary and upon canine deputy reviewmay be revised to meet current compliance requirements. Recognized by the [place] [employer] for promoting quality in endoscopy Fawad He MD ENDOSCOPY PROCEDURES Final Re sult from Last 3 Months or Most Recently Relevant to Health Maintenance Insurance [facility] MEDICARE [facility] MEDICARE SUPPLEMENT Advance Directives For more information, please contact: [phone] Documents on File Type Date Recorded Patient Food Technologist Expl anation ADVANCE DIRECTIVE 04/30/2025 3:45 PM POLST - Phys Order for PT Preferences Power of Rcp 04/30/2025 9:55 AM ADVANCE DIRECTIVE 08/14/2024 12:50 [...] 8:49 AM 03/03/2019 3:50 PM Care Teams Rope Coiling Machine Operator Relationship Specialty Start Date End Date Eddie Palomo MD [place] [address] PCP - General Family Medicine 06/12/23 Ky Wilson, RN Registered Nurse 12/19/17
--- OUTSIDE RECORDS SUMMARY | 2025-06-09 08:21 | XMS_ITS | Clinical Summary ---
Author Organization [facility] Facility Address [address] [address] Care Team Providers Care Prison Classification Counselor Name Role Phone Unavailable Primary Care Provider Unavailabl e Social History Tobacco Use Types Packs/Day Years Used Date Smoking Tobacco: Never Assessed Sex and Gender Information Value Date Recorded Sex Assigned at Not on file Legal Sex Male 10:09 AM EDT Gender Identity Not on file Sexual Orientation Not on file Plan of Treatment Health Maintenance Due Date Last Done Comments Pneumococcal Vaccine: 50+ Ye ars (1 of 1 - PCV) 1987 Influenza Vaccine (#1) 2025 Hepatitis B Vaccine Aged Out No longe r eligible based on patient's age to complete this topic
--- OUTSIDE RECORDS SUMMARY | 2025-06-09 08:21 | XMS_ITS | Encounter Summary ---
Author Organization [facility] Address [address] [place] [address] Care Team Providers Care Software Support Analyst Name Role Phone Ky Wilson RN Unavailable Unavailabl Terrence Knight MD Primary Care Provider [phone] Candelaria Nguyen LPN Unavailable Michaela Benavides MA Unavailable [phone] Eddie Palomo MD Primary Care Provider [phone] Encounter Details Date Type Department Care Team (Late st Contact Info) Description 11/04/2017 Orders Only [facility] Respiratory [address] [place] [address] Alden Israel MD [address] [place] [address] Social History Tobacco Use Types Packs/Day Years Used Date Smoking Tobacco: Former Smokeless Tobacco: Never Alcohol Use Standard Drinks/Week Comments Yes 0 (1 standard drink = 0.6 oz pur e alcohol) Sex and Gender Information Value Date Recorded Sex Assigned at Not on file 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 Gender Identity Not on file Sexual Orientation Not on file documented as of this encounter Plan of Treatment Not on file documented as of this encounter Visit Diagnoses Not on filedocumented in this encounter Additional Health Concerns Infection Onset Date Last Indicated Resolved Time COVID: Suspected 06/29/2022 06/29/2022 06/29/2022 9:59 AM CDT documented as of this encounter Care Teams Software Support Analyst Relationship Specialty Start Date End Date Terrence Jones MD PCP - General Family Medicine 05/16/22 06/11/23 Eddie Palomo MD [address] [place] [address] PCP - General Family Medicine 06/12/23 Ky Wilson, RN Registered Nurse 12/19/17 Candelaria Nguyen, STEVEN [address] [place] [address] [address] [place] [address] ACO Care Licensed Massage Practitioner 07/05/22 07/15/22 Michaela Benavides MA [address] [facility] [address] [place] [address] ACO Care Licensed Massage Practitioner 07/17/22 08/13/22 documented as of this encounter
--- OUTSIDE RECORDS SUMMARY | 2025-06-09 08:21 | XMS_ITS | Clinical Summary ---
Author Organization [facility] Address [address] [place] [address] Phone Care Team Providers Care Global Cmo Name Role Phone Alden Israel MD Primary Care Provider [phone] Allergies No known active allergies Medications warfarin (COUMADIN) 2 MG Tablet TAKE 4 TABLETS BY MOUTH EVERY DAY EXCEPT FOR SATURDAY. ON SATURDAY TAKE 4 AND 1/2 TABLETS OR DIRECTED. 08/03/2022 Active metoprolol Succinate (TOPROL-XL) 25 MG TABLET SR 24 HR 05/18/2022 Active Calcium Citrate-Vitamin D 315-250 MG-UNIT Tablet Take 1 Tablet by mouth daily. Active atorvastatin (LIPITOR) 10 MG Tablet 06/08/2022 Active guaiFENesin (MUCINEX) 600 MG TABLET SR 12 HR Take 1,200 mg by mouth. 06/12/2022 Active Social History Tobacco Use Types Packs/Day Years Used Date Smoking Tobacco: Never Smokeless Tobacco: Never Sex and Gender Information Value Date Recorded Sex Assigned at Not on file Legal Sex Male 10:00 PM CDT Gender Identity Not on file Sexual Orientation Not on file Last Filed Vital Signs Vital Sign Reading Time Taken Comments Blood Pressure 108/60 08/17/2022 12:42 PM CDT Pulse 88 08/17/2022 12:42 PM CDT Temperature 36.7 C (98.1 F) 08/17/2022 12:42 PM CDT Respiratory Rate 18 08/17/2022 12:42 PM CDT Oxygen Saturation 96% 08/17/2022 12:42 PM CDT Inhaled Oxygen Concentration - - Weight 83.9 kg (185 lb) 08/17/2022 12:42 PM CDT Height - - Body Mass Index - - Plan of Treatment Health Maintenance Due Date Last Done Comments Hepatitis C Virus (HCV) Screening 1935 TdaP Immunization 1935 Respiratory Syncytial Virus (RSV) Immunization (Adult) (1 - 1-dose 75+ series) 2012 Zoster Immunization (2 of 3) 12/15/2013 10/20/2013, 12/02/2012 SARS-COV-2 Immunization ( season) 2024 07/04/2022, 10/10/2021, 02/07/2021 Influenza Immunization (#1) 08/02/202507/2021, 08/27/2019, 09/15/2018, Additional history exists DTaP/Tdap/Td Immunization Discontinued 10/18/2009 Pneumococcal Immunization (50+ years) Completed 11/10/2015, 10/09/2012, 10/31/2007 Hepatitis B Immunization Aged Out No longer eligible based on patient's age to complete this topic Human Papillomavirus (HPV) Immunization Aged Out No longer eligible based on patient's age to complete this topic Meningococcal Immunization (ACWY) Aged Out No longer eligible based on patient's age to complete this topic Rotavirus Immunization Aged Out No lo nger eligible based on patient's age to complete this topic Insurance MEDICARE [facility] Care Teams Global Cmo Relationship Specialty Start Date End Date Aledn Israel MD [address] [facility] [address] [address] PCP - General Internal Medicine 08/17/22
--- OUTSIDE RECORDS SUMMARY | 2025-06-09 08:21 | XMS_ITS | Encounter Summary ---
Author Organization [facility] Healthcare Address [address] [place] [address] Care Team Providers Care Embedded Engineer Name Role Phone Ky Wilson RN [facility] Terrence Weiss MD Primary Care Provider [phone] Eddie Palomo MD Primary Care Provider [phone] Encounter Details Date Type Department Care Team (Late st Contact Info) Description 12/24/2022 Telephone [facility] [address] [place] [address] [address], [place] Social History Tobacco Use Types Packs/Day Years Used Date Smoking Tobacco: Former Smokeless Tobacco: Never Alcohol Use Standard Drinks/Week Comments Not Currently 0 (1 standard drink = 0.6 oz pur e alcohol) PHQ-2 Answer Date Recorded PHQ-2 Total Score (If total score is 3 or more points, staff should administer the PHQ-9) 0 12/04/2022 Sex and Gender Information Value Date Recorded Sex Assigned at Not on file 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
--- NOTE | 2025-06-09 08:41 | ED.FALL ---
HPI - Fall General Chief Complaint: Fall Stated Complaint: Fall, Left Eye Injury Time Seen by Provider: 06/09/25 08:43 Source: patient and RN notes reviewed Mode of arrival: ambulatory Limitations: no limitations History of Present Illness HPI Narrative: 89 year old male presents with concern for a laceration above the left eyebrow after fall. He lives in assisted living facility, and woke up with the laceration. He also has some bruising of the left upper eyelid. He has a small abrasion under the left eye and to the bridge of the nose. His daughter reports he has dementia, he does not remember the fall. He has a history of low blood pressure and has been having dizziness in relation to that. He denies current headache. He is on blood thinner. MD complaint: fall Related Data Home Medications ?Medication ?Instructions ?Recorded ?Confirmed ?Last Taken ?Type acetaminophen 500 mg tablet 500 mg PO TID PRN pain 06/09/25 06/09/25 Unknown History (Acetaminophen Pain Relief) apixaban 5 mg tablet (Eliquis) mg 06/09/25 Unknown History donepezil 5 mg tablet mg 06/09/25 Unknown History escitalopram oxalate 5 mg tablet mg 06/09/25 Unknown History midodrine 5 mg tablet mg 06/09/25 Unknown History Allergies Allergy/AdvReac Type Severity Reaction Status Date / Time No Known Allergies Allergy Verified 06/09/25 09:12 Review of Systems Review of Systems: CONSTITUTIONAL: Denies malaise, chills, sweats, or fever. SKIN: Reports laceration above the left eyebrow MUSCULOSKELETAL: Denies muscle skeletal pain NEUROLOGIC: Denies numbness, weakness. Denies headache All systems reviewed & are unremarkable except as noted in HPI and below PMFSH Comments At time of signature, agree with nursing past medical, surgical, social and family history. There is no relevant family history pertinent to the presenting complaint Exam Narrative: GENERAL: Well-appearing, well-nourished, and in no acute distress. HEAD: Normocephalic, atraumatic. EYES: PERRLA, conjunctivae clear, and EOMI. ENT: Mucous membranes moist. NECK: Supple. No lymphadenopathy CHEST: Clear to auscultation. No respiratory distress. HEART: Regular rate and rhythm. SKIN: Warm, dry. 3.5 cm irregular laceration noted above the left eyebrow. Small abrasion noted below the left eye, small abrasion noted to the bridge of the nose NEURO: Alert and oriented x3. PSYCH: Normal mood and affect Course Course Emergency Course: Patient has history of dementia and lives in assisted living. He is here with his daughter who has POA. Patient is adamantly refusing transfer to ER for evaluation of head injury and reason for fall. It was explained to the patient and his daughter the risk of not getting further evaluation in the ER. Patient is still refusing. Daughter verbalizes understanding and agrees with the patient about not going to the ER at this time. Nurse SORAYA witnessed conversation. Daughter has reached out to PCP to enquire about outpatient evaluation and is waiting for a call back. She will stay with the patient for the rest of the day. She is aware of symptoms to watch for of when to go to the ER or call 911 Anticipatory guidance given. Patient agrees to follow-up as directed and is aware of reasons to seek care at the emergency department. Portions of this record may have been created with voice recognition software Level of Care: Express Care Visit Vital Signs Vital signs: Vital Signs Temperature 98 F 06/09/25 08:21 Pulse Rate 88 06/09/25 08:21 Respiratory Rate 16 06/09/25 08:21 Blood Pressure 138/70 06/09/25 08:21 Pulse Oximetry 97 06/09/25 08:21 Oxygen Delivery Room Air 06/09/25 08:21 Temperature 98 F 06/09/25 08:21 Pulse Rate 88 06/09/25 08:21 Respiratory Rate 16 06/09/25 08:21 Blood Pressure 138/70 06/09/25 08:21 Pulse Oximetry 97 06/09/25 08:21 Oxygen Delivery Room Air 06/09/25 08:21 Reviewed. Procedures Laceration Laceration 1: Date: 06/09/25 Time: 08:54 Site: face Side (If applicable): left Size (cm): 3.5 Description: irregular Depth: simple, single layer Local Anesthetic: lidocaine 1% Amount of anesthesia used (mL): 4 Pre-repair: wound explored and irrigated ====== Skin Level ====== Skin layer closed with: nylon Size (cm): 5-0 Number of sutures: 6 Technique: simple, interrupted ====== Subcutaneous Layer ====== ====== Muscle Layer ====== ====== Tendon Layer ====== MDM - Fall MDM Narrative Medical decision making narrative: Wound explored for foreign body and copious irrigation provided with no evidence of FB. Discussed the potential of retained foreign body with the patient and signs/symptoms that should prompt the patient to immediately go to the ED for reevaluation. The wound was explored and no foreign bodies were found. There was no evidence of tendon or nerve lacerations. A sterile dressing was then applied and anticipatory guidance was provided. Tetanus prophylaxis was given In depth discussion was had regarding further evaluation of patient's reason for fall and evaluation of head injury. Patient has history of low blood pressure and AFib. He has episodes of dizziness related to his blood pressure. Differential Diagnosis Differential diagnosis: Likely syncope, concussion with loss of consciousness, concussion without loss of consciousness and other (AFib, a flutter, hypotension,) Critical Care Time Critical Care Time Critical Care Time: No Discharge Plan Discharge Clinical Impression: Laceration Patient Disposition: Home Condition: Stable Instructions: Laceration (ED) Additional Instructions: When you hit your head and are over the age of 65, and on blood thinners, it is important that you ensure you don't have an internal head injury. A CT scan is the best way to do this. Because you are refusing transfer to the ER, please monitor symptoms closely and communicate with your PCP regarding further evaluation of your fall. Keep wound clean, and dry. Apply antibiotic ointment twice daily. Cover with bandage as needed to prevent contamination. Clean with soap and water twice daily, but do not soak, take baths, or swim until wound is completely healed. Do not clean with hydrogen peroxide. If any signs of infection such as redness, swelling, increasing pain, drainage of purulent discharge, streaks up your extremity develop, seek medical attention immediately. Followup with your primary care provider in 7 days for suture removal. After sutures are removed, keep your scar out of the sun. You may use OTC silicone pad and/or scar massage with ointment (for 10-15 min a day) after one month. Talk to your doctor if you think you are developing a keloid. Patient Language: [place] Prescriptions: No Action donepezil 5 mg tablet midodrine 5 mg tablet escitalopram oxalate 5 mg tablet Eliquis 5 mg tablet acetaminophen [Acetaminophen Pain Relief] 500 mg tablet 500 mg PO TID PRN (Reason: pain) Follow-up/Referrals: Dewey,MD Eddie [Primary Care Provider] - Time of Disposition: 09:40
[2025-06-09] MEDS: TETANUS,DIPHTHERIA,AC PERTUSSIS ADULT (0.5 ML) BOOSTRIX IM (09:17)
== END 2025-06-09 09:45 | disposition home or self-care (01) ==
PROVIDERS: Emergency Provider Nurse Practitioner; PCP Hospitalist
DX: S01.81XA Laceration without foreign body of other part of head, initial encounter (principal); W19.XXXA Unspecified fall, initial encounter; Z23 Encounter for immunization; F03.90 Unspecified dementia, unspecified severity, without behavioral disturbance, psychotic disturbance, mood disturbance, and anxiety
CPT/HCPCS: 12013; 90471; 90715; 99212; G0463; J2003